=== PATIENT | male | born 1995 | race Caucasian/White ===

== ENCOUNTER 2019-01-15 17:15 | Emergency (ER) | payer OTHER ==
[~2019-01-15 17:15] MED LIST: KET10 PO; LOR5/325 PO
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
[2019-01-15 17:45] VITALS: BP 124/78
== END 2019-01-15 17:47 | disposition home or self-care (01) ==
LOC: ER 17:26
DX: S01.81XA Laceration without foreign body of other part of head, initial encounter (principal); S00.81XA Abrasion of other part of head, initial encounter
CPT/HCPCS: 99282

== ENCOUNTER 2019-01-20 20:33 | Emergency (ER) | payer OTHER ==
[2019-01-20 20:39] VITALS: BP 131/94
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
[2019-01-20] MEDS ORDERED: APAP/HYDROCODONE 325/5 TAB PO ONE (20:55)
[2019-01-20] MEDS ORDERED: LOR5/325 PO (21:06)
[2019-01-20] MEDS ORDERED: ACET/HYDROC 5/325MG TH ER ONLY 2 TAB/BOTTLE PO ONE (21:30)
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
== END 2019-01-20 21:50 | disposition home or self-care (01) ==
LOC: ER 20:52
DX: S62.305A Unspecified fracture of fourth metacarpal bone, left hand, initial encounter for closed fracture (principal)
CPT/HCPCS: 99283